=== PATIENT | female | born 1975 | race Two or more races ===

== ENCOUNTER 2021-12-08 09:51 | Outpatient (CLI) | payer OTHER | END 2021-12-08 09:59 | disposition home or self-care (01) | LOC: RX STUDY 09:51 | PROVIDERS: ATTEND Internal Medicine Gastroenterology | DX: K21.9 Gastro-esophageal reflux disease without esophagitis (principal); K30 Functional dyspepsia; R10.13 Epigastric pain ==

== ENCOUNTER 2021-12-13 09:16 | Outpatient (CLI) | payer OTHER | END 2021-12-13 09:17 | disposition home or self-care (01) | LOC: LAB 09:16 | DX: B35.1 Tinea unguium (principal); B16.9 Acute hepatitis B without delta-agent and without hepatic coma ==

== ENCOUNTER 2022-07-12 07:43 | Outpatient (CLI) | payer OTHER | END 2022-07-12 07:53 | disposition home or self-care (01) | LOC: RX STUDY 07:43 | PROVIDERS: ATTEND Internal Medicine | DX: K21.9 Gastro-esophageal reflux disease without esophagitis (principal); G47.31 Primary central sleep apnea ==

== ENCOUNTER 2022-11-21 06:05 | Day surgery (SDC) | payer OTHER ==
[~2022-11-21] VITALS: Ht 172.7 cm; Wt 113.4 kg
[~2022-11-21 06:05] MED LIST: ENALAPRIL MALEA10 MG PO; FOLIC ACID20 MG PO; GLIMEPIRIDE2 MG; NORVASC2.5 M1 PO; TOUJEO SOL300 UNIT/1; TRIJARDY XR 101 EACH PO
== END 2022-11-21 14:10 | disposition home or self-care (01) ==
LOC: CIR.AMB 06:05
PROVIDERS: ATTEND Orthopaedic Surgery Hand Surgery
DX: G56.01 Carpal tunnel syndrome, right upper limb (principal); Z20.822 Contact with and (suspected) exposure to COVID-19; I10 Essential (primary) hypertension

== ENCOUNTER 2023-01-23 05:31 | Day surgery (SDC) | payer OTHER ==
[~2023-01-23] VITALS: Ht 172.7 cm; Wt 112.0 kg
[~2023-01-23 05:31] MED LIST changes: +ATORVASTATIN CA10 MG PO; -GLIMEPIRIDE2 MG; +GLIMEPIRIDE2 MG PO
== END 2023-01-23 11:30 | disposition home or self-care (01) ==
LOC: CIR.AMB 05:31
PROVIDERS: ATTEND Orthopaedic Surgery Hand Surgery
DX: G56.02 Carpal tunnel syndrome, left upper limb (principal); E11.9 Type 2 diabetes mellitus without complications; E78.5 Hyperlipidemia, unspecified; I10 Essential (primary) hypertension; Z20.822 Contact with and (suspected) exposure to COVID-19